=== PATIENT | female | born 1995 | race Caucasian/White ===

== ENCOUNTER → 2016-06-06 | Outpatient (CLI) | payer SELFPAY ==
[2015-02-02 00:08] VITALS: BP 136/85
[~2016-06-06] MED LIST: ACET-704 PO; IBUP-1060 PO
--- NOTE | 2016-06-06 15:45 | KCIC ---
PROCEDURE Limited obstetrical ultrasound HISTORY Evaluate position of baby and growth COMPARISON None FINDINGS Multiple sonographic images of the uterus are submitted. Cervix measured 5.2 centimeters in length. There is a single live intrauterine fetus in cephalic presentation. movement was noted by technologist. There is detectable cardiac activity 150 beats per minute. There is anterior placenta and also extending to the right laterally. Biometry data are as follows: Biparietal diameter 8.94 centimeters corresponds with 36 weeks 1 day Head circumference 33.08 centimeters corresponds with 37 weeks 5 days Abdominal circumference 32.9 centimeters corresponds with 36 weeks 6 days Femur length 7.16 centimeters corresponds with 36 weeks 5 days HC/AC ratio 1.01 within normal limits. Estimated weight 3036 grams +/-449 grams corresponding with the 31st percentile. Adjusted ultrasound age 36 weeks 6 days with estimated delivery date of 06/28/2016. LMP age is 38 weeks 3 days with estimated delivery date of 06/17/2016. There are no previous exams to evaluate for change in growth parameters. Accurate evaluation of the anatomy is limited at this age of the . Subjectively amniotic fluid volume is considered lower limits of normal, PHUC 8.8 centimeters. Maternal ovaries are not demonstrated. No free fluid is demonstrated. IMPRESSION 1. There is a single viable intrauterine fetus, cephalic presentation. Adjusted ultrasound age is 36 weeks 6 days with estimated delivery date of 06/28/2016. There are no previous exams available for comparison. Amniotic fluid volume is considered lower limits of normal. Electronically signed by: Ulices Wilcox MD (Jun 06, 2016 15:44:26)
== END | disposition home or self-care (01) ==
LOC: KCIC US 14:08
PROVIDERS: ATTEND Obstetrics & Gynecology
DX: Z34.93 Encounter for supervision of normal pregnancy, unspecified, third trimester (principal); Z3A.36 36 weeks gestation of pregnancy
CPT/HCPCS: 76815